=== PATIENT | female | born 2000 | race Caucasian/White ===

== ENCOUNTER 2020-10-14 19:21 | Emergency (ER) | payer OTHER, SELFPAY ==
[2020-10-14 19:22] VITALS: BP 140/99; PULSE 93; RESP 18; TEMP 35.6; O2SAT 100; BMI 20.3
--- NOTE | 2020-10-14 19:35 | ED.VIS.GEN ---
History of Present Illness Chief Complaint: Rash Informant: Patient Narrative: Patient is a 20-year-old female with a past medical history of Crohn's disease who presents to the emergency department after referral from urgent care for a petechial rash of her lower extremities bilaterally. She states that this does start 1-1/2 weeks ago. It was initially itchy and she had some small blisters on her feet which have no longer been bothering her. She states that it has been pretty stable over the past few days. She denies any symptoms otherwise whatsoever. She denies any fevers or chills. No cough. No nausea/vomiting or diarrhea. She has any chest pain or shortness of breath. No abdominal pain. No urinary symptoms. She was recently switched her Crohn's medication to remicade a week or 2 prior to the start of the rash. Apparently she was also on amoxicillin for strep throat during the same timeframe. She denies ever having this happen before in the past. She denies smoking, drinking or drug use. No previous surgeries. Past Medical History - Allergies and Home Meds Allergies/Adverse Reactions: Allergies No Known Allergies Allergy (Verified 04/08/16 08:21) Primary Care Physician: Tye Sotelo MD [Primary Care Provider] - 3-5 Days Prior records reviewed: Yes Surgical History: no surgical history Smoking Status: Never smoker Review of Systems All systems negative except as indicated General: Denies: Chills, Fever, Sweats Eyes: Denies: Visual changes - bilaterally, Diplopia ENT: Denies: Rhinorrhea, Sore throat Cardiovascular: Denies: Chest pain, Palpitations Respiratory: Denies: Dyspnea, Cough, Dyspnea on exertion Gastrointestinal: Denies: Abdominal pain, Nausea, Vomiting, Diarrhea Genitourinary: Denies: Dysuria, Hematuria, Frequency Musculoskeletal: Denies: Back pain, Extremity Pain Skin: Reports: Rash. Denies: Wounds Neurological: Denies: Headache, Weakness, Numbness Hematologic: Denies: Easy bruising, Easy bleeding Allergy: Denies: Swelling of the mouth, Swelling of the tongue Physical Exam Vital Signs/Narrative: Vital Signs Temp Pulse Resp BP Pulse Ox 10/14/20 19:22 96.1 F L 93 18 140/99 H 100 Inital Vital Signs reviewed: Yes General: Well nourished, Well developed, No Acute Distress Head: Normocephalic, Atraumatic Eyes: Perrl, EOMI ENT: Moist mucous membranes, No rhinorrhea, - - Mucous membranes not involved with rash. Neck: Supple, Nontender Cardiovascular: Regular rate, Regular rhythm, No murmurs Respiratory: No distress, CTA bilaterally, Chest nontender Abdomen: Soft, Nontender, Nondistended, Normal bowel sounds Back: Nontender, Normal Inspection Extremities: Nontender, No edema Skin: Normal color, Rash - Nonpalpable petechiae extending from dorsal aspect of feet up to mid thigh bilaterally. The soles of the feet are unaffected. No sloughing of skin. No evidence of cellulitis. Neurological: Alert, Oriented x3, Cranial nerves II-XII grossly intact, Normal Strength, Normal Sensation Psychological: Normal affect, Normal Mood Diagnostic/Tx/Re-eval - Medical Decision Making Patient presents to the emergency department for petechial rash which started a week and a half ago. Has stabilized and she has no complaints otherwise. Upon arrival to the emergency department she is mildly hypertensive but otherwise normal vital signs. Will check basic lab work to evaluate platelet status. Patient's lab work did not reveal to the patient to be anemic or have low platelets. No other significant acute abnormality. This time do believe she is stable for discharge. Her rash has been stable. Will take some time to resolve. She needs to talk with her GI doctor about continuing treatments although it could be related to her previous strep infection or antibiotic therapy for this. Return precautions are reviewed with her including worsening of the rash or developing any systemic symptoms including any fever/chills. She understands and is agreeable this plan. Discharged home in stable condition. All questions answered. She is to follow-up with her PCP. ED Disposition - Plan for ED Patient: Disposition: Home or Assisted Living Diagnosis: Petechial rash Instructions: ED Petechiae (Child) Referrals: Tye Sotelo MD [Primary Care Provider] - 3-5 Days
[2020-10-14 19:52] LABS: Absolute Lymphocyte Count 2.99 X10^3/uL (0.83-4.51); Basophil# 0.03 X10^3/uL; Basophil% 0.5 % (0-1); Eosinophil# 0.15 X10^3/uL; Eosinophils% 2.3 % (0-5); Hematocrit 35.6 % (37-47); Lymphocyte # 2.99 X10^3/ul (4.0); Lymphocyte % 45.2 % (19-41); Mean Corp Hgb Conc 33.7 g/dL (32-36); Mean Corpuscular Hgb 30.3 pg (27.0-32.0); Mean Corpuscular Volume 89.9 fL (81-99); Mean Platelet Vol. 9.8 fl (6.2-12.0); Monocyte# 0.43 X10^3/uL; Monocyte% 6.5 % (0-10); NRBC Flagged by Analyzer 0 % (0-5); Neutrophil # 2.99 X10^3/uL (2.7-7.7); Neutrophil % 45.2 % (47-70); Platelet Count 237 K/mm3 (150-450); RBC Distribution Width CV 11.1 % (11.6-14.6); Red Blood Count 3.96 M/mm3 (4.2-5.4); White Blood Count 6.6 K/mm3 (4.4-11.0)
[2020-10-14 20:13] LABS: Internal QC Validated? YES +Cl - CLEAR BKGD; Pregnancy, Serum, hCG Quali. NEGATIVE Negative
[2020-10-14 20:17] LABS: Anion Gap 6 (5-15); BUN 11 mg/dL (7-18); BUN/Creat Ratio 15.5 RATIO (10-20); Calcium,Total 9.1 mg/dL (8.5-10.1); Chloride 105 mmol/L (98-107); Creatinine, Serum 0.71 mg/dL (0.55-1.02); EST Glomerular Filtration Rate 110 mL/min (>60); Est Glom Filt Rate - Afr Amer 133 mL/min (>60); Estimated Creatinine Clearance 113.09 ml/min; Glucose 96 mg/dL (74-106); Potassium 3.4 mmol/L (3.5-5.1); Sodium Level 138 mmol/L (136-145)
[2020-10-14 21:02] VITALS: RESP 16
== END 2020-10-14 21:06 | disposition home or self-care (01) ==
PROVIDERS: Emergency Provider Emergency Medicine; PCP Pediatrics
DX: R23.3 Spontaneous ecchymoses (principal)
CPT/HCPCS: 80048; 84703; 85025; 99282; A4216

== ENCOUNTER → 2020-11-13 | Outpatient (REF) | payer OTHER, SELFPAY ==
[2020-10-14 19:22] VITALS: BMI 20.3
[2020-11-14 00:38] LABS: ALB/GLOB Ratio 0.9 RATIO (0.9-2.4); AST(SGOT) 13 U/L (15-37); Alanine Aminotransfer ALT/SGPT 17 U/L (13-56); Albumin, Serum 4.2 g/dL (3.2-5.0); Alkaline Phosphatase 37 U/L (45-117); Anion Gap 6 (5-15); BUN 17 mg/dL (7-18); BUN/Creat Ratio 23.8 RATIO (10-20); CRP < 2.90 mg/L (0.0-3.0); Calcium,Total 9.6 mg/dL (8.5-10.1); Chloride 103 mmol/L (98-107); Creatinine, Serum 0.72 mg/dL (0.55-1.02); EST Glomerular Filtration Rate 109 mL/min (>60); Est Glom Filt Rate - Afr Amer 132 mL/min (>60); Globulin 4.5 g/dL (2.2-4.2); Glucose 65 mg/dL (74-106); Potassium 3.9 mmol/L (3.5-5.1); Protein, Total 8.7 g/dL (6.4-8.2); Sodium Level 135 mmol/L (136-145)
[2020-11-14 01:05] LABS: Absolute Lymphocyte Count 2.37 X10^3/uL (0.83-4.51); Absolute Neutrophil Count 2.6 X10^3/uL (2.0-7.7); Basophil# 0.02 X10^3/uL; Basophil% 0.4 % (0-1); Eosinophils% 1.8 % (0-5); Hematocrit 36.3 % (37-47); Lymphocyte # 2.37 X10^3/ul (4.0); Lymphocyte % 43.2 % (19-41); Mean Corp Hgb Conc 33.1 g/dL (32-36); Mean Corpuscular Hgb 29.9 pg (27.0-32.0); Mean Corpuscular Volume 90.5 fL (81-99); Mean Platelet Vol. 10.9 fl (6.2-12.0); Monocyte% 7.3 % (0-10); NRBC Flagged by Analyzer 0 % (0-5); Neutrophil # 2.58 X10^3/uL (2.7-7.7); Neutrophil % 47.1 % (47-70); Platelet Count 259 K/mm3 (150-450); RBC Distribution Width CV 11.4 % (11.6-14.6); RBC Distribution Width SD 38.3 fl (35.1-43.9); Red Blood Count 4.01 M/mm3 (4.2-5.4); White Blood Count 5.5 K/mm3 (4.4-11.0)
[2020-11-14 01:12] LABS: Erythrocyte Sedimentation Rate 12 mm/hr (0-30)
== END | disposition home or self-care (01) ==
LOC: LABSPEC 23:55
PROVIDERS: PCP Pediatrics
DX: K50.90 Crohn's disease, unspecified, without complications (principal)
CPT/HCPCS: 80053; 85025; 85652; 86140

== ENCOUNTER → 2021-01-07 | Outpatient (CLI) | payer OTHER, SELFPAY ==
[2021-01-07 21:39] LABS: Erythrocyte Sedimentation Rate 10 mm/hr (0-30)
[2021-01-07 21:41] LABS: Absolute Neutrophil Count 2.8 X10^3/uL (2.0-7.7); Basophil# 0.03 X10^3/uL; Basophil% 0.6 % (0-1); Eosinophil# 0.12 X10^3/uL; Eosinophils% 2.3 % (0-5); Hematocrit 38.1 % (37-47); Hemoglobin 12.5 g/dL (12.0-15.0); Mean Corp Hgb Conc 32.8 g/dL (32-36); Mean Corpuscular Hgb 30.2 pg (27.0-32.0); Mean Platelet Vol. 10.8 fl (6.2-12.0); Monocyte# 0.33 X10^3/uL; Monocyte% 6.3 % (0-10); NRBC Flagged by Analyzer 0 % (0-5); Neutrophil # 2.78 X10^3/uL (2.7-7.7); Neutrophil % 52.6 % (47-70); Platelet Count 288 K/mm3 (150-450); RBC Distribution Width CV 11.9 % (11.6-14.6); RBC Distribution Width SD 40.1 fl (35.1-43.9); Red Blood Count 4.14 M/mm3 (4.2-5.4); White Blood Count 5.3 K/mm3 (4.4-11.0)
[2021-01-07 22:04] LABS: ALB/GLOB Ratio 0.9 RATIO (0.9-2.4); AST(SGOT) 12 U/L (15-37); Alanine Aminotransfer ALT/SGPT 16 U/L (13-56); Albumin, Serum 3.9 g/dL (3.2-5.0); Alkaline Phosphatase 36 U/L (45-117); Anion Gap 5 (5-15); BUN 9 mg/dL (7-18); BUN/Creat Ratio 10.6 RATIO (10-20); CRP < 2.90 mg/L (0.0-3.0); Calcium,Total 9.2 mg/dL (8.5-10.1); Chloride 106 mmol/L (98-107); Creatinine, Serum 0.85 mg/dL (0.55-1.02); EST Glomerular Filtration Rate 90 mL/min (>60); Est Glom Filt Rate - Afr Amer 108 mL/min (>60); Globulin 4.5 g/dL (2.2-4.2); Glucose 56 mg/dL (74-106); Potassium 3.8 mmol/L (3.5-5.1); Protein, Total 8.4 g/dL (6.4-8.2); Sodium Level 139 mmol/L (136-145)
== END | disposition home or self-care (01) ==
PROVIDERS: PCP Pediatrics
DX: K50.90 Crohn's disease, unspecified, without complications (principal)
CPT/HCPCS: 80053; 85025; 85652; 86140

== ENCOUNTER → 2021-03-03 | Outpatient (CLI) | payer OTHER, SELFPAY | END | disposition home or self-care (01) | PROVIDERS: Visit Provider Family Medicine | DX: L02.91 Cutaneous abscess, unspecified (principal) | CPT/HCPCS: 87070; 87077; 87205 ==

== ENCOUNTER → 2021-05-12 | Outpatient (REF) | payer OTHER, SELFPAY ==
[2021-05-12 23:20] LABS: Hematocrit 38.6 % (37-47); Hemoglobin 12.9 g/dL (12.0-15.0); Mean Corp Hgb Conc 33.4 g/dL (32-36); Mean Corpuscular Volume 89.8 fL (81-99); Mean Platelet Vol. 10.5 fl (6.2-12.0); Platelet Count 270 K/mm3 (150-450); RBC Distribution Width CV 11.4 % (11.6-14.6); RBC Distribution Width SD 37.1 fl (35.1-43.9); White Blood Count 4.7 K/mm3 (4.4-11.0)
[2021-05-12 23:42] LABS: Vitamin B12 558 pg/mL (211-911); Vitamin D,25 Hydroxy 44.6 ng/mL
[2021-05-12 23:49] LABS: ALB/GLOB Ratio 0.9 RATIO (0.9-2.4); AST(SGOT) 14 U/L (15-37); Alanine Aminotransfer ALT/SGPT 19 U/L (13-56); Alkaline Phosphatase 41 U/L (45-117); Anion Gap 5 (5-15); BUN 12 mg/dL (7-18); BUN/Creat Ratio 17.4 RATIO (10-20); CRP < 2.90 mg/L (0.0-3.0); Calcium,Total 9.5 mg/dL (8.5-10.1); Chloride 106 mmol/L (98-107); Creatinine, Serum 0.69 mg/dL (0.55-1.02); EST Glomerular Filtration Rate 113 mL/min (>60); Est Glom Filt Rate - Afr Amer 137 mL/min (>60); Globulin 4.5 g/dL (2.2-4.2); Glucose 84 mg/dL (74-106); Iron 92 ug/dL (50-170); Iron Binding Capacity,Total 361 ug/dL (250-450); PERCENT IRON SATURATION 25.5 % (15.0-55.0); Potassium 3.4 mmol/L (3.5-5.1); Protein, Total 8.5 g/dL (6.4-8.2); Sodium Level 138 mmol/L (136-145)
[2021-05-14 05:06] LABS: Hepatitis B Core Ab Total Negative (Negative)
[2021-05-14 08:57] LABS: Hepatitis B Core AB IgM Negative (Negative)
== END | disposition home or self-care (01) ==
LOC: LABSPEC 23:07
PROVIDERS: Visit Provider Internal Medicine
DX: K50.90 Crohn's disease, unspecified, without complications (principal)
CPT/HCPCS: 80053; 82306; 82607; 83540; 83550; 85027; 86140; 86480; 86704; 86705

== ENCOUNTER → 2021-06-29 19:30 | Outpatient (CLI) | payer OTHER, SELFPAY ==
[2021-06-29 19:54] LABS: ALB/GLOB Ratio 0.8 RATIO (0.9-2.4); AST(SGOT) 13 U/L (15-37); Alanine Aminotransfer ALT/SGPT 15 U/L (13-56); Albumin, Serum 3.7 g/dL (3.2-5.0); Alkaline Phosphatase 37 U/L (45-117); Anion Gap 7 (5-15); BUN 12 mg/dL (7-18); BUN/Creat Ratio 18.7 RATIO (10-20); CRP 7.03 mg/L (0.0-3.0); Calcium,Total 9.1 mg/dL (8.5-10.1); Chloride 103 mmol/L (98-107); Creatinine, Serum 0.64 mg/dL (0.55-1.02); EST Glomerular Filtration Rate 123 mL/min (>60); Est Glom Filt Rate - Afr Amer 149 mL/min (>60); Globulin 4.6 g/dL (2.2-4.2); Glucose 69 mg/dL (74-106); Potassium 3.8 mmol/L (3.5-5.1); Protein, Total 8.3 g/dL (6.4-8.2); Sodium Level 136 mmol/L (136-145)
[2021-06-29 20:00] LABS: Erythrocyte Sedimentation Rate 19 mm/hr (0-30)
== END ==
LOC: LABSPEC 06-30 07:36 → LAB 06-30 07:38
PROVIDERS: Visit Provider Internal Medicine
DX: K50.90 Crohn's disease, unspecified, without complications (principal)
CPT/HCPCS: 80053; 85652; 86140

== ENCOUNTER → 2021-08-20 | Outpatient (CLI) | payer OTHER, SELFPAY ==
[2021-08-20 19:59] LABS: Hematocrit 31.5 % (37-47); Hemoglobin 10.6 g/dL (12.0-15.0); Mean Corp Hgb Conc 33.7 g/dL (32-36); Mean Corpuscular Volume 89.2 fL (81-99); Mean Platelet Vol. 10.6 fl (6.2-12.0); Platelet Count 291 K/mm3 (150-450); RBC Distribution Width CV 11.9 % (11.6-14.6); RBC Distribution Width SD 38.2 fl (35.1-43.9); Red Blood Count 3.53 M/mm3 (4.2-5.4); White Blood Count 4.8 K/mm3 (4.4-11.0)
[2021-08-20 21:06] LABS: ALB/GLOB Ratio 0.8 RATIO (0.9-2.4); AST(SGOT) 14 U/L (15-37); Alanine Aminotransfer ALT/SGPT 14 U/L (13-56); Albumin, Serum 3.6 g/dL (3.2-5.0); Alkaline Phosphatase 34 U/L (45-117); Anion Gap 7 (5-15); BUN 11 mg/dL (7-18); BUN/Creat Ratio 16.9 RATIO (10-20); CRP < 2.90 mg/L (0.0-3.0); Calcium,Total 9.1 mg/dL (8.5-10.1); Chloride 105 mmol/L (98-107); Creatinine, Serum 0.65 mg/dL (0.55-1.02); EST Glomerular Filtration Rate 121 mL/min (>60); Est Glom Filt Rate - Afr Amer 146 mL/min (>60); Globulin 4.3 g/dL (2.2-4.2); Glucose 82 mg/dL (74-106); Potassium 3.4 mmol/L (3.5-5.1); Protein, Total 7.9 g/dL (6.4-8.2); Sodium Level 138 mmol/L (136-145)
== END | disposition home or self-care (01) ==
PROVIDERS: Visit Provider Internal Medicine
DX: K50.90 Crohn's disease, unspecified, without complications (principal)
CPT/HCPCS: 80053; 85027; 86140

== ENCOUNTER 2021-10-20 20:20 | Outpatient (CLI) | payer OTHER, SELFPAY ==
[2021-10-20 20:27] LABS: Absolute Lymphocyte Count 1.92 X10^3/uL (0.83-4.51); Absolute Neutrophil Count 2.8 X10^3/uL (2.0-7.7); Basophil# 0.01 X10^3/uL; Basophil% 0.2 % (0-1); Eosinophil# 0.17 X10^3/uL; Eosinophils% 3.2 % (0-5); Hematocrit 32.5 % (37-47); Hemoglobin 11.4 g/dL (12.0-15.0); Lymphocyte # 1.92 X10^3/ul (0.83-4.51); Lymphocyte % 36.2 % (19-41); Mean Corp Hgb Conc 35.1 g/dL (32-36); Mean Corpuscular Hgb 31.5 pg (27.0-32.0); Mean Corpuscular Volume 89.8 fL (81-99); Mean Platelet Vol. 10.6 fl (6.2-12.0); Monocyte# 0.43 X10^3/uL; Monocyte% 8.1 % (0-10); NRBC Flagged by Analyzer 0 % (0-5); Neutrophil # 2.76 X10^3/uL (2.7-7.7); Neutrophil % 52.1 % (47-70); Platelet Count 249 K/mm3 (150-450); RBC Distribution Width CV 11.3 % (11.6-14.6); Red Blood Count 3.62 M/mm3 (4.2-5.4); White Blood Count 5.3 K/mm3 (4.4-11.0)
[2021-10-20 20:34] LABS: Erythrocyte Sedimentation Rate 9 mm/hr (0-30)
[2021-10-20 21:12] LABS: AST(SGOT) 15 U/L (15-37); Alanine Aminotransfer ALT/SGPT 18 U/L (13-56); Albumin, Serum 3.8 g/dL (3.2-5.0); Alkaline Phosphatase 34 U/L (45-117); Anion Gap 7 (5-15); BUN 14 mg/dL (7-18); BUN/Creat Ratio 19.4 RATIO (10-20); CRP < 2.90 mg/L (0.0-3.0); Calcium,Total 8.8 mg/dL (8.5-10.1); Chloride 103 mmol/L (98-107); Creatinine, Serum 0.72 mg/dL (0.55-1.02); EST Glomerular Filtration Rate 107 mL/min (>60); Est Glom Filt Rate - Afr Amer 129 mL/min (>60); Globulin 3.9 g/dL (2.2-4.2); Glucose 92 mg/dL (74-106); Potassium 3.4 mmol/L (3.5-5.1); Protein, Total 7.7 g/dL (6.4-8.2); Sodium Level 134 mmol/L (136-145)
== END 2021-10-20 23:59 | disposition short-term general hospital (02) ==
PROVIDERS: Visit Provider Internal Medicine
DX: K50.90 Crohn's disease, unspecified, without complications (principal)
CPT/HCPCS: 80053; 85025; 85652; 86140

== ENCOUNTER 2021-10-21 14:49 | Outpatient (CLI) | payer OTHER, SELFPAY ==
--- NOTE | 2021-10-21 14:52 | US_ITS ---
HISTORY: UTI EXAMINATION: US Kidney(s) complete (eg, kidneys and bladder) TECHNIQUE: Apple scale and color doppler images were obtained of the kidneys. COMPARISON: None FINDINGS: RIGHT KIDNEY: 10.8 cm in length. No focal parenchymal mass, hydronephrosis, nephrolithiasis, or perinephric fluid collection is noted. LEFT KIDNEY: 11.4 cm in length. No focal parenchymal mass, hydronephrosis, nephrolithiasis, or perinephric fluid collection is noted. URINARY BLADDER: Unremarkable. US/Kidney and Bladder IMPRESSION: No hydronephrosis. at 1608 Reported and signed by: Gus Salgado MD Electronically Signed: Gus Salgado MD at 16:07 EST ,
== END 2021-10-21 23:59 | disposition short-term general hospital (02) ==
LOC: US 14:50
PROVIDERS: PCP Family Medicine; Visit Provider Urology
DX: N39.0 Urinary tract infection, site not specified (principal)
CPT/HCPCS: 76770

== ENCOUNTER 2021-11-11 13:35 | Outpatient (CLI) | payer OTHER, SELFPAY ==
[2021-11-11 14:15] LABS: Mucous, Urine 0 SEEN /hpf (<or=2+); Red Blood Cells-Urine 0 SEEN /hpf (0-5); Squamous Epithelial Cells - UA 0 SEEN /hpf (5-10)
[2021-11-11 14:52] LABS: Absolute Lymphocyte Count 1.89 X10^3/uL (0.83-4.51); Basophil# 0.01 X10^3/uL; Basophil% 0.2 % (0-1); Eosinophil# 0.05 X10^3/uL; Eosinophils% 1.2 % (0-5); Hematocrit 34.5 % (37-47); Hemoglobin 11.7 g/dL (12.0-15.0); Lymphocyte # 1.89 X10^3/ul (0.83-4.51); Lymphocyte % 44.3 % (19-41); Mean Corp Hgb Conc 33.9 g/dL (32-36); Mean Corpuscular Hgb 30.6 pg (27.0-32.0); Mean Corpuscular Volume 90.3 fL (81-99); Mean Platelet Vol. 10.3 fl (6.2-12.0); Monocyte# 0.33 X10^3/uL; Monocyte% 7.7 % (0-10); NRBC Flagged by Analyzer 0 % (0-5); Neutrophil # 1.98 X10^3/uL (2.7-7.7); Neutrophil % 46.4 % (47-70); Platelet Count 218 K/mm3 (150-450); RBC Distribution Width CV 11.5 % (11.6-14.6); RBC Distribution Width SD 37.5 fl (35.1-43.9); Red Blood Count 3.82 M/mm3 (4.2-5.4); White Blood Count 4.3 K/mm3 (4.4-11.0)
[2021-11-11 15:43] LABS: Albumin, Serum 3.8 g/dL (3.2-5.0); BUN 9 mg/dL (7-18); BUN/Creat Ratio 12.3 RATIO (10-20); Creatinine, Serum 0.73 mg/dL (0.55-1.02); EST Glomerular Filtration Rate 105 mL/min (>60); Est Glom Filt Rate - Afr Amer 127 mL/min (>60); Glucose 91 mg/dL (74-106)
[2021-11-11 15:44] LABS: ALB/GLOB Ratio 0.9 RATIO (0.9-2.4); AST(SGOT) 13 U/L (15-37); Alanine Aminotransfer ALT/SGPT 18 U/L (13-56); Alkaline Phosphatase 38 U/L (45-117); Anion Gap 4 (5-15); Calcium,Total 8.9 mg/dL (8.5-10.1); Chloride 105 mmol/L (98-107); Globulin 4.2 g/dL (2.2-4.2); Potassium 3.6 mmol/L (3.5-5.1); Sodium Level 138 mmol/L (136-145)
[2021-11-11 15:49] LABS: Color, Urine Yellow (Yellow); Glucose, Dipstick Normal (Normal); Ketone-Dipstick Negative (Negative); Leukocyte Esterase-Dipstick Negative /ul (Negative); Nitrite-Dipstick Negative (Negative); Occult Blood-Urine Negative /ul (Negative); Protein-Dipstick Negative (Negative); Urine Bilirubin Dipstick Negative (Negative); Urine Clarity Clear (Clear); Urine Urobilinogen Normal (Normal)
[2021-11-11 16:04] LABS: Bacteria 1+ /hpf (None Seen)
[2021-11-11 16:05] LABS: White Blood Cells 0-5 SEEN /hpf (0-5)
[2021-11-15 15:36] LABS: Anti-Nuclear Antibody Test Negative (.); Anti-dsDNA Ab <1 IU/mL (0-9)
== END 2021-11-11 23:59 | disposition home or self-care (01) ==
LOC: MTLAB 13:38 → LAB 13:58
PROVIDERS: PCP Family Medicine; Referring Provider Dermatology; Visit Provider Dermatology
DX: T69.1XXA Chilblains, initial encounter (principal); X31.XXXA Exposure to excessive natural cold, initial encounter; I73.00 Raynaud's syndrome without gangrene
CPT/HCPCS: 36415; 80053; 81001; 82595; 85025; 86038; 86225

== ENCOUNTER 2022-03-24 17:29 | Emergency (ER) | payer OTHER, SELFPAY ==
[2022-03-24 17:32] VITALS: BP 116/76; PULSE 125; RESP 18; TEMP 38.4; O2SAT 100; BMI 19.0
--- NOTE | 2022-03-24 17:46 | EX.ED.DYSGE1 ---
HPI History of Present Illness Chief Complaint: Sore Throat Informant: patient Onset/Context/Timing Onset: Yesterday Context: Gradual Onset Current Severity: Moderate Maximum Severity: Moderate Narrative Narrative: Patient presents secondary to sore throat and fever. She states she felt achy all day yesterday and developed sore throat last night. Temperature was up to 105 at home. She was seen in urgent care this morning where her rapid strep test was negative. COVID test was obtained but results are not available yet. Her fever spiked again this afternoon so she went back to urgent care and then referred to the emergency room. She denies significant cough or shortness of breath. She had some mild nausea but no vomiting. She complains of sore throat and left ear pain. She also complains of generalized headache. She was given Tylenol 1 hour prior to arrival in the emergency room. [facility] Medical History Crohn's disease Migraines Home Medications amitriptyline 10 mg tablet 5 mg PO DAILY 06/04/21 [History Last Taken Unknown] dicyclomine 20 mg tablet 20 mg PO DAILY 06/04/21 [History Last Taken Unknown] norgestimate 0.25 mg-ethinyl estradiol 35 mcg tablet ([place]) 1 tab PO DAILY 06/04/21 [History Last Taken Unknown] omeprazole magnesium 10 mg oral suspension,delayed release (Prilosec) 20 mg PO DAILY 06/04/21 [History Last Taken Unknown] spironolactone 100 mg tablet 100 mg PO BID 06/04/21 [History Last Taken Unknown] cephalexin 500 mg capsule 500 mg PO Q12 #14 caps 03/24/22 [Rx Last Taken Unknown] Allergy/AdvReac Type Severity Reaction Status Date / Time aspirin Allergy Severe Vomiting Verified 03/24/22 17:32 Social History Smoking Status: Never smoker ROS ROS ED Constitutional Constitutional ED: Reports fever(s); Denies chills Eyes Eyes: Denies change in vision or discharge from eye(s) ENT ENT ED: Reports ear pain left and sore throat; Denies discharge from eye(s) or rhinorrhea Cardiovascular Cardiovascular: Denies chest pain or palpitations Respiratory/Chest Respiratory/Chest: Denies cough or dyspnea Gastrointestinal Gastrointestinal: Reports nausea; Denies abdominal pain, diarrhea or vomiting Genitourinary Genitourinary ED: Denies difficulty urinating or dysuria Musculoskeletal Musculoskeletal: Reports myalgias; Denies back pain or extremity pain Integumentary Denies Abrasions or rash Neurologic Neurologic: Reports headache(s); Denies weakness Psychiatric Psychiatric: Denies anxiety or depression Allergic/Immunologic Allergic/Immunologic ED: Denies lip swelling or urticaria EXAM Physical Exam Narrative Exam Narrative: Head of bed elevated approximately 40 degrees. Patient tolerating secretions well and has a strong voice. Const Vital Signs: 03/24/22 17:32 03/24/22 17:59 03/24/22 17:59 Temperature 101.2 F H 101.2 F H Temperature Source Oral Oral Pulse Rate 125 H 125 H Respiratory Rate 18 18 Respiratory Effort Normal Non-Labored Blood Pressure 116/76 116/76 Blood Pressure Mean 89 Pulse Ox 100 100 Oxygen Delivery Method Room Air Room Air Positive well nourished and well developed General Appearance ED: well developed HEENT Reports normocephalic and head/scalp atraumatic HEENT Narrative: Scarring noted to the tympanic membrane's bilaterally. No evidence of acute infection. 3+ tonsils bilaterally with small amount of exudate. Uvula is midline. Eyes PERRL and EOMs intact bilaterally Neck supple Neck Narrative: No meningismus. Chest Wall inspection of chest normal and palpation of chest normal Resp normal respiratory effort and clear to auscultation bilaterally Cardio regular rhythm Rate: tachycardic GI non-tender Auscultation: hypoactive bowel sounds Palpation: soft Back/Spine no CVA tenderness Extremity normal to inspection Neuro oriented x3 and no sensory deficits noted Sensorium / Orientation: alert Motor Exam: strength 5/5 throughout Psych mental status grossly normal Skin no rashes or lesions noted MDM MDM MDM Narrative Medical decision making narrative: Patient given IV fluids along with Toradol. Lab work obtained along with a COVID test. Lab Data Attestation: I reviewed the patient's lab results. Labs: Laboratory Results - last 24 hr 03/24/22 03/24/22 17:56 17:56 WBC 13.8 H RBC 3.90 L Hgb 12.2 Hct 35.5 L MCV 91.0 MCH 31.3 MCHC 34.4 RDW Std Deviation 39.5 RDW Coeff of Petra 11.9 Plt Count 160 MPV 10.2 Immature Gran % (Auto) 0.500 Neut % (Auto) 88.6 H Lymph % (Auto) 4.9 L [place] % (Auto) 5.9 Eos % (Auto) 0.0 Baso % (Auto) 0.1 Absolute Neuts (auto) 12.2 H Absolute Lymphs (auto) 0.68 L Nucleated RBC % 0 Sodium 134 L Potassium 3.3 L Chloride 101 Carbon Dioxide 26.0 Anion Gap 7 BUN 8 Creatinine 0.82 Estim Creat Clear Calc 90.93 Est GFR (MDRD) Af Amer 111 Est GFR (MDRD) Non-Af 92 BUN/Creatinine Ratio 9.7 L Glucose 99 Calcium 9.2 Radiography Diagnostic Testing: Clinical Impression(s) from Imaging Studies Soft Tissue Neck CT 03/24/22 19:00 IMPRESSION: Acute tonsillitis. No drainable abscess. Electronically Signed: Gene Millan MD at 19:19 EDT , Treatment and Re-Evaluation Narrative: Rapid COVID test is negative. CBC was a white count of 13.8 with 88% neutrophils. Chemistry studies significant only for mildly low potassium at 3.3. Patient was sent for CT scan of the neck with contrast. This reveals evidence of acute tonsillitis but no drainable abscess. Test results discussed with patient and family at bedside. I did advise her that the majority of tonsillitis/pharyngitis cases are viral in nature. We also typically see the higher temperature of 103-105 with viral illness. I will give her a dose of Decadron now to help with swelling. I will write her a prescription for antibiotics that she will hold onto for the next 36 to 48 hours. If she continues to run high fevers and still having significant symptoms at that point, she will fill the prescription. Her rapid strep test at the urgent care today was negative. Her repeat temperature prior to discharge is 99.1 Discharge Plan Triage Chief Complaint: Sore Throat ED Provider: Arminda Jha Dx/Rx/DC Orders Clinical Impression: Acute tonsillitis Instructions: ED Tonsillitis Prescriptions: New cephalexin 500 mg capsule 500 mg PO Q12 Qty: 14 0RF No Action spironolactone 100 mg tablet 100 mg PO BID Prilosec 10 mg susp,delayed release for recon 20 mg PO DAILY norgestimate-ethinyl estradiol [[place]] 0.25-35 mg-mcg tablet 1 tab PO DAILY amitriptyline 10 mg tablet 5 mg PO DAILY dicyclomine 20 mg tablet 20 mg PO DAILY Primary Care Provider: Warren Hall Referrals: Warren Hall MD [Primary Care Provider] - 10-14 Days if not better Disposition Disposition: Home, Self Care
[2022-03-24 17:59] VITALS: BP 116/76; PULSE 125; RESP 18; TEMP 38.4; O2SAT 100
[2022-03-24] MEDS: Ketorolac 15 MG/ML Vial IV (18:04)
[2022-03-24 18:07] LABS: Absolute Lymphocyte Count 0.68 X10^3/uL (0.83-4.51); Absolute Neutrophil Count 12.2 X10^3/uL (2.0-7.7); Basophil# 0.02 X10^3/uL; Basophil% 0.1 % (0-1); Hematocrit 35.5 % (37-47); Hemoglobin 12.2 g/dL (12.0-15.0); Lymphocyte # 0.68 X10^3/ul (0.83-4.51); Lymphocyte % 4.9 % (19-41); Mean Corp Hgb Conc 34.4 g/dL (32-36); Mean Corpuscular Hgb 31.3 pg (27.0-32.0); Mean Platelet Vol. 10.2 fl (6.2-12.0); Monocyte# 0.81 X10^3/uL; Monocyte% 5.9 % (0-10); NRBC Flagged by Analyzer 0 % (0-5); Neutrophil # 12.17 X10^3/uL (2.7-7.7); Neutrophil % 88.6 % (47-70); Platelet Count 160 K/mm3 (150-450); RBC Distribution Width CV 11.9 % (11.6-14.6); RBC Distribution Width SD 39.5 fl (35.1-43.9); White Blood Count 13.8 K/mm3 (4.4-11.0)
[2022-03-24 18:21] LABS: Anion Gap 7 (5-15); BUN 8 mg/dL (7-18); BUN/Creat Ratio 9.7 RATIO (10-20); Calcium,Total 9.2 mg/dL (8.5-10.1); Chloride 101 mmol/L (98-107); Creatinine, Serum 0.82 mg/dL (0.55-1.02); EST Glomerular Filtration Rate 92 mL/min (>60); Est Glom Filt Rate - Afr Amer 111 mL/min (>60); Estimated Creatinine Clearance 90.93 ml/min; Glucose 99 mg/dL (74-106); Potassium 3.3 mmol/L (3.5-5.1); Sodium Level 134 mmol/L (136-145)
[2022-03-24] MEDS: 0.9% Normal Saline 1,000 ML 150 ML IV (18:29)
--- NOTE | 2022-03-24 19:00 | CT_ITS ---
STUDY: CT SOFT TISSUE NECK WITH CONTRAST REASON FOR EXAM: Female, 21 years old. History: left sided neck pain, fever History: left sided neck pain, fever Radiation: CTDIvol = [10.59] mGy, DLP = [322.94] mGy-cm TECHNIQUE: The patient was scanned in a multi-detector CT scanner. High resolution transaxial imaging was performed following intravenous administration of IV 75mL Isovue-370contrast material. Sagittal and coronal images were reconstructed. Individualized dose optimization techniques were used for this CT. COMPARISON: None. left sided neck pain, fever FINDINGS: Normal bilateral parotid glands. Normal bilateral side puller spaces. Normal bilateral parapharyngeal spaces. Normal bilateral carotid spaces. Normal bilateral sublingual and submandibular glands and spaces. Normal visualized nasopharynx. Normal retropharyngeal space. Normal perivertebral space. Acute tonsillitis. No drainable abscess. The visualized tongue, tongue base and oropharynx are normal. There are minimally enlarged lymph nodes of the neck, with preservation of normal francis architecture, consistent with a reactive lymph hyperplasia. There is no demonstrated solid or cystic mass lesion. There is no abnormal contrast enhancement. Normal epiglottis, bilateral vallecula and hypopharynx. The pre-epiglottic and paraglottic adipose spaces are normal. Normal visualized bilateral piriform sinuses, aryepiglottic folds, vocal cords, and arytenoid-cricoid articulations. Normal subglottic trachea. Normal bilateral lobes of the thyroid gland. Normal visualized pulmonary apices. Normal visualized paranasal sinuses. Normal visualized cervical spine. CT/Soft Tissue Neck WITH Contrast IMPRESSION: Acute tonsillitis. No drainable abscess. Electronically Signed: Gene Millan MD at 19:19 EDT ,
[2022-03-24] MEDS: dexAMETHasone 10 MG/ML Vial IV (19:54)
[2022-03-24 20:04] VITALS: PULSE 100; RESP 18; O2SAT 97
== END 2022-03-24 20:04 | disposition home or self-care (01) ==
PROVIDERS: Emergency Provider Emergency Medicine; PCP Family Medicine; Visit Provider Emergency Medicine
DX: J03.90 Acute tonsillitis, unspecified (principal)
CPT/HCPCS: 70491; 80048; 85025; 87811; 96361; 96374; 96375; 99283; J7030; Q9967; A4216

== ENCOUNTER → 2022-04-05 | Outpatient (CLI) | payer OTHER, SELFPAY | END | disposition home or self-care (01) | LOC: MFPLAB 13:43 | PROVIDERS: PCP Family Medicine; Visit Provider Family Medicine | DX: J03.90 Acute tonsillitis, unspecified (principal) | CPT/HCPCS: 87070 ==

== ENCOUNTER → 2022-04-23 | Outpatient (CLI) | payer OTHER, SELFPAY | END | disposition home or self-care (01) | LOC: LABSPEC 14:51 | PROVIDERS: PCP Family Medicine; Visit Provider Otolaryngology | DX: J03.90 Acute tonsillitis, unspecified (principal) | CPT/HCPCS: 87070; 87077 ==

== ENCOUNTER → 2022-05-14 | Outpatient (CLI) | payer OTHER, SELFPAY ==
[2022-05-14 13:43] VITALS: BP 115/79; PULSE 95; RESP 16; TEMP 35.8; O2SAT 99; BMI 19.3
[2022-05-14] MEDS: Penicillin G Benzathine 1.2 MU/2 ML Syringe IM (13:49)
== END | disposition home or self-care (01) ==
LOC: MEDOUTP 13:29
PROVIDERS: PCP Family Medicine; Referring Provider Otolaryngology; Visit Provider Otolaryngology
DX: J02.9 Acute pharyngitis, unspecified (principal)
CPT/HCPCS: 96372

== ENCOUNTER → 2022-06-21 | Outpatient (CLI) | payer OTHER, SELFPAY ==
[2022-06-21 15:02] VITALS: BP 119/86; PULSE 91; RESP 14; TEMP 35.9; O2SAT 100; BMI 19.3
[2022-06-21] MEDS: Penicillin G Benzathine 1.2 MU/2 ML Syringe IM (15:38)
== END | disposition home or self-care (01) ==
LOC: MEDOUTP 14:57
PROVIDERS: PCP Family Medicine; Referring Provider Otolaryngology; Visit Provider Otolaryngology
DX: J02.9 Acute pharyngitis, unspecified (principal)
CPT/HCPCS: 96372

== ENCOUNTER → 2022-09-17 | Outpatient (CLI) | payer OTHER, SELFPAY ==
[2022-09-17 17:06] LABS: Hematocrit 35.7 % (37-47); Hemoglobin 11.9 g/dL (12.0-15.0); Mean Corp Hgb Conc 33.3 g/dL (32-36); Mean Corpuscular Hgb 30.8 pg (27.0-32.0); Mean Corpuscular Volume 92.5 fL (81-99); Mean Platelet Vol. 9.9 fl (6.2-12.0); Platelet Count 308 K/mm3 (150-450); RBC Distribution Width CV 11.7 % (11.6-14.6); RBC Distribution Width SD 39.3 fl (35.1-43.9); Red Blood Count 3.86 M/mm3 (4.2-5.4); White Blood Count 8.9 K/mm3 (4.4-11.0)
[2022-09-17 17:58] LABS: ALB/GLOB Ratio 0.9 RATIO (0.9-2.4); AST(SGOT) 15 U/L (15-37); Alanine Aminotransfer ALT/SGPT 20 U/L (13-56); Albumin, Serum 3.8 g/dL (3.2-5.0); Alkaline Phosphatase 36 U/L (45-117); Anion Gap 4 (5-15); BUN 11 mg/dL (7-18); BUN/Creat Ratio 18.7 RATIO (10-20); CRP < 2.90 mg/L (0.0-3.0); Calcium,Total 9.5 mg/dL (8.5-10.1); Chloride 105 mmol/L (98-107); Creatinine, Serum 0.59 mg/dL (0.55-1.02); EST Glomerular Filtration Rate 135 mL/min (>60); Est Glom Filt Rate - Afr Amer 163 mL/min (>60); Globulin 4.3 g/dL (2.2-4.2); Glucose 87 mg/dL (74-106); Potassium 3.5 mmol/L (3.5-5.1); Protein, Total 8.1 g/dL (6.4-8.2); Sodium Level 138 mmol/L (136-145)
== END | disposition home or self-care (01) ==
PROVIDERS: PCP Family Medicine; Visit Provider Internal Medicine
DX: K50.80 Crohn's disease of both small and large intestine without complications (principal); K64.8 Other hemorrhoids
CPT/HCPCS: 36415; 80053; 85027; 86140